=== PATIENT | male | born 1940 | race Caucasian/White ===

== ENCOUNTER 2019-04-03 08:59 | Inpatient (IN) | payer OTHER, MEDICAID ==
[2019-04-03] VITALS (13 sets, daily range): BP systolic 80–158; BP diastolic 47–95
[~2019-04-03] VITALS: Ht 167.6 cm; Wt 77.4 kg
--- NOTE | 2019-04-03 09:05 | NUR ---
I WAS CALLED OUT TO ED LOBBY FOR PT WITH CP AND SOB. PT WAS RECEIVED AND TRIAGED IN BED 8. PT WAS UNABLE TO ANSWER QUESTIONS APPROPRIATED AND WOULD ONLY GROAN STATING HE HAS CHEST PAIN, LEFT ARM PAIN, AND SOB. PT WAS ABLE TO AMBULATE TO GURFERTILE AND SIT UP. PT PLACED ON FULL CM. WILL CONTINUE TO MONITOR.
--- NOTE | 2019-04-03 09:13 | NUR ---
PT DIAPHORETIC AND RESTLESS, UNABLE TO OBTAIN ACCURATE ECG AFTER MULTIPLE ATTEMPTS. MADE AWARE.
--- NOTE | 2019-04-03 09:14 | NUR ---
WHILE CHARTING IN PT RM, PT PALLOR BECAME BIANCHI AND HE BECAME UNRESPONSIVE. NO PULSE WAS DETECTED UPON PALPATION. CODE BLUE STARTED AT 913. 915 PULSE CHECK NEGATIVE, CPR RESUMED. 916 1 EPINEPHRINE GIVEN. 917 PULSE CHECK POSITIVE, COMPRESSIONS STOPPED.
[2019-04-03 09:27] LABS: CALCIUM 8.4 mg/dL (8.5-10.1); CARBON DIOXIDE 23.3 mmol/L (21-32); CHLORIDE SERUM 107 mmol/L (98-107); GLUCOSE SERUM 114 mg/dL (74-106); POTASSIUM SERUM 3.7 mmol/L (3.5-5.1); SODIUM SERUM 146 mmol/L (136-145)
[2019-04-03 09:28] LABS: BASOPHIL % 0.8 % (0-2); PLATELET COUNT 204 x10^3mcL (130-400)
[2019-04-03 09:29] LABS: RED CELL DISTRIBUTION WIDTH 15.5 % (11.5-14.5)
[2019-04-03 09:31] LABS: ALBUMIN 3.8 g/dL (3.4-5.0); ALKALINE PHOSPHATASE 136 U/L (46-116); ALT/SGPT 45 U/L (16-63); AST/SGOT 47 U/L (15-37)
--- NOTE | 2019-04-03 09:45 | NUR ---
XRAY AT BEDSIDE
--- NOTE | 2019-04-03 10:29 | NUR ---
PT BP 85/50 MAP 62, PROPOFOL DRIP STOPPED. MADE AWARE.
--- NOTE | 2019-04-03 10:42 | NUR ---
PER DR. OKEEFE TITRATE DIPRIVAN TO 20MCG/KG/MIN. PT RESTLESS.
--- NOTE | 2019-04-03 10:50 | NUR ---
AT BEDSIDE TO PLACE CENTRAL LINE. PT SEDATED, TOLERATED PROCEDURE WELL.
--- NOTE | 2019-04-03 11:13 | NUR ---
DR. OKEEFE SPEAKING WITH FAMILY AT BEDSIDE.
--- NOTE | 2019-04-03 11:14 | NUR ---
DIPRIVAN TITRATED TO 5MCG/KG/MIN. DR. OKEEFE MADE AWARE.
--- NOTE | 2019-04-03 11:31 | NUR ---
DIPRIVAN TITRATED TO 10MCG/KG/MIN, PT BECOMING RESTLESS.
[2019-04-03 12:08] LABS: T3 TOTAL 1.17 ng/mL
--- NOTE | 2019-04-03 12:12 | NUR ---
REPORT GIVEN TO RN DEEPAK TO ASSUME CARE OF PT.
[2019-04-03 12:13] LABS: MAGNESIUM 2.1 mg/dL (1.8-2.4); PHOSPHOROUS 4.1 mg/dL (2.5-4.9)
[2019-04-03 12:15] LABS: UA SPECIFIC GRAVITY >=1.030 (1.005-1.035); microscopic required? YES; urine erythrocyte 2+ (NEGATIVE)
[2019-04-03 12:20] LABS: CHOLESTEROL/HDL RATIO 4.4
[2019-04-03 12:22] LABS: AMPHETAMINE QUAL UR NONE DETECTED (See below)
[2019-04-03 12:28] LABS: FREE T4 1.17 ng/dL (0.76-1.46); FREE THYROXINE INDEX 2.4 ug/dL (1.4-4.5); T4(THYROXINE) 7.2 ug/dL (4.7-13.3)
[2019-04-03] MEDS ORDERED: PAROXETINE HCL40 M1 PO (14:38)
[2019-04-03] MEDS ORDERED: FINASTERIDE5 M1 PO (14:40)
[2019-04-03] MEDS ORDERED: NAPROXEN375 MG PO (14:42)
[2019-04-03] MEDS ORDERED: GOOD SENSE OMEP20 MG (14:43)
[2019-04-03] MEDS ORDERED: NOR10 (14:43)
[2019-04-03] MEDS ORDERED: CARVEDILOL3.125 M1 (14:45)
--- NOTE | 2019-04-03 16:35 | NUR ---
BLOOD NOTED COMING FROM LAC. IV REMOVED FROM LAC AND RAC AT THIS TIME, MEDICATIONS PLACED TO CENTRAL LINE. PATIENT STABLE. WILL CONTINUE TO MONITOR.
--- NOTE | 2019-04-03 17:20 | NUR ---
DR MNEDENHALL AT BEDSIDE. ALL UPDATES PROVIDED. NO NEW ORDERS AT THIS TIME.
--- NOTE | 2019-04-03 17:43 | NUR ---
PATIENT GESTURING THAT HE FEELS IF HE HAS TO THROW UP. DR. COREYED PAGED AT THIS TIME.
--- NOTE | 2019-04-03 17:56 | NUR ---
PER DR. TONEY, HE WAS NOTIFIED OF PATIENT URINE OUTPUT BEING LOW, AND ALSO ZOFRAN FOR PATIENT. PER DR TONEY, PATIENT HAS CHF AND HE DOES NOT WANT TO ORDER FLUIDS AT THIS TIME. BUT HE WILL ORDER ZOFRAN. NO NEW ORDERS FOR URINE OUTPUT. WILL CONTINUE TO MONITOR.
--- NOTE | 2019-04-03 18:20 | NUR ---
DR. TONEY PAGED AT THIS TIME OF PATIENTS TROP BEING 0.211.
--- NOTE | 2019-04-03 18:29 | NUR ---
PATIENT WRITES ON PAPER THAT HE HAS FEELS THE NEED TO URINATE. EXPLAINED TO PATIENT THAT HE HAS A MURRELL. PATIENT WRITES THAT HE STILL HAS THE URGE. ACCORDING TO SON PATIENT HAS HX OF BPH. BLADDER SCAN DONE AT THIS TIME, SHOWING 0 ML. INFORMED FAMILY AND PATIENT. PATIENT AND FAMILY GAVE INDICATION OF UNDERSTANDING. WILL CONTINUE TO MONITOR.
--- NOTE | 2019-04-03 19:09 | NUR ---
REPORT GIVEN TO CHARAN GARCES ALL QUESTIONS ANSWERED.
--- NOTE | 2019-04-03 19:12 | NUR ---
RECEIVED REPORT FROM PRADIP FARRAR. ASSUMING ALL CARE
--- NOTE | 2019-04-03 19:15 | NUR ---
RECEIVED PT LAYING IN BED. PT IS INTUBATED AND SEDATED ON PROPOFOL @ 10 MCG/KG/MIN. RSS=4. PT IS ABLE TO FOLLOW SIMPLE COMMANDS. PT RESPONDS TO VERBAL STIMULI. PUPILS WITH BRISK RESPONSE TO LIGHT, 3 MM BILAT. GAG REFLEX PRESENT. 7.5 ETT INTACT/SECURED, 25 CM @ LL. RIJ CVC IN PLACE, ALL PORTS PATENT, DRESSING CDI. OGT INTACT/SECURED. ORAL CARE PROVIDED PER VAP PROTOCOL. ETT TO VENT. VENT SETTINGS: VCV/AC MODE, RATE 16, VT 500, PEEP 5, FIO2 80%. LUNGS SOUND CLEAR TO BUL AND DIMIN TO BLL. SYMMETRICAL CHEST EXPANSION NOTED. S1/S2 HEART SOUNDS AUSCULTATED. CHEST WALL EQUAL AND SYMMETRICAL. NO S/S OF CP NOTED. HR 58, BP 101/60, MAP 73. EPI GTT INFUSING @ 1 MCG/MIN. PALPABLE PULSES X4 EXTREMITIES. SKIN IS WARM AND DRY. + 1 PITTING EDEMA NOTED TO BLE. CAP REFILL < [address] GENERALIZED WEAKNESS. PT IS ON BEDREST. NO JOINT SWELLING/DEFORMITY NOTED. PT ON BILAT SOFT WRIST RESTRAINT WITH GOOD CIRCULATION NOTED. PT IS NPO AT THIS TIME. ABD IS DISTENDED. BOWEL SOUNDS ACTIVE X4 QUADRANTS. NO BM NOTED. MURRELL IS INTACT/SECURED, DRAINING VIA GRAVITY WITH MAIA COLORED URINE. POOR URINE OUTPUT. NO SCROTAL EDEMA NOTED. SKIN IS INTACT. PT REPOSITIONED Q2H AND PRN FOR COMFORT. PT IS CALM AND COOPERATIVE. FAMILY AT BEDSIDE. BED IN LOW POSITION. CALL LIGHT IN REACH. WILL CONT TO MONITOR
--- NOTE | 2019-04-03 19:34 | NUR ---
ERIKA KEY AT BEDSIDE. FIO2 TITRATED TO 60%. PT'S CURRENT O2 SATURATION 98%. WILL CONT TO MONITOR.
--- NOTE | 2019-04-03 23:38 | NUR ---
RT AT BEDSIDE FOR EKG
[2019-04-04] VITALS (11 sets, daily range): BP systolic 90–122; BP diastolic 52–76; Ht 167.6 cm; Wt 77.4 kg
--- NOTE | 2019-04-04 02:05 | NUR ---
CRITICAL LAB RESULT: TROPONIN 0.176. TRENDING DOWN. WILL CONT TO MONITOR.
--- NOTE | 2019-04-04 04:15 | NUR ---
PT IS RESTLESS AT THIS TIME. ATTEMPTING TO PULL ON ETT. EDUCATED ON IMPORTANCE OF NOT REMOVING ANY LINES/TUBES. PT NODDED HEAD IN AGREEMENT. PROPOFOL TITRATED TO 15 MCG/KG/MIN. WILL CONT TO MONITOR.
[2019-04-04 04:35] LABS: BASOPHIL % 0.4 % (0-2); PLATELET COUNT 183 x10^3mcL (130-400)
[2019-04-04 05:09] LABS: RED CELL DISTRIBUTION WIDTH 15.2 % (11.5-14.5)
--- NOTE | 2019-04-04 05:15 | NUR ---
FIO2 TITRATED TO 50% BY ERIKA KEY. PT'S O2 SATUTRATION 95%. WILL CONT TO MONITOR
[2019-04-04 05:18] LABS: CALCIUM 7.9 mg/dL (8.5-10.1); CARBON DIOXIDE 22.4 mmol/L (21-32); CHLORIDE SERUM 111 mmol/L (98-107); GLUCOSE SERUM 127 mg/dL (74-106); MAGNESIUM 1.9 mg/dL (1.8-2.4); PHOSPHOROUS 3.8 mg/dL (2.5-4.9); POTASSIUM SERUM 3.6 mmol/L (3.5-5.1); SODIUM SERUM 147 mmol/L (136-145)
--- NOTE | 2019-04-04 06:05 | NUR ---
DR. BARRERA MADE AWARE OF NIBP 99/55, MAP 67. PER DR. BARRERA, HOLD OFF ON BUMEX MEDICATION. WILL CHANGE SEDATION FROM PROPOFOL TO VERSED.
--- NOTE | 2019-04-04 06:19 | NUR ---
X-RAY TECH AT BEDSIDE
--- NOTE | 2019-04-04 06:25 | NUR ---
PT IS CALM AT THIS TIME. PROPOFOL TITRATED TO 10 MCG/KG/MIN. WILL CONT TO MONITOR
--- NOTE | 2019-04-04 07:04 | NUR ---
REPORT GIVEN TO LEXX FARRAR. ALL QUESTIONS/CONCERNS ADDRESSED AT THIS TIME. ENDORSING ALL CARE
--- NOTE | 2019-04-04 08:02 | NUR ---
VENT FIO2 TITRATED DOWN TO 40% FROM 50% BY SUKHJINDER KEY. PT SPO2 CURRENTLY 97%, NO S/S RESPIRATORY DISTRESS NOTED. WILL CONTINUE TO MONITOR PT.
--- NOTE | 2019-04-04 09:13 | NUR ---
PT POX 88% INCREASED FIO2 FROM 40% BACK TO 50% POX IS 91%. WILL CONTINUE TO MONITOR
--- NOTE | 2019-04-04 09:40 | NUR ---
VERSED TITRATED DOWN TO 1 MG/HR FROM 2 MG/HR D/T SUKHJINDER RT WANTING TO TRY CPAP. WILL CONTINUE TO ASSESS AND MONITOR PT.
--- NOTE | 2019-04-04 09:53 | NUR ---
SUKHJINDER RT PLACED PT ON CPAP. SPO2 91%, RR 21, NO S/S ACUTE DISTRESS NOTED. WILL CONTINUE TO MONITOR PT.
--- NOTE | 2019-04-04 10:47 | NUR ---
PT PUT SUPINE TO REPOSITION IN BED, HR WENT DOWN TO 30'S. PT PUT BACK UP TO SEMI PEGUERO'S POSITION. HR RETURNED TO 80'S THEN GRADUALLY DECREASED TO 40'S. PT APPEARS ASYMPTOMATIC WITH NO DISTRESS. EPINEPHRINE TITRATED UP TO 2 MCG/MIN. WILL CONTINUE TO MONITOR PT FOR FURTHER EPISODES OF BRADYCARDIA.
--- NOTE | 2019-04-04 11:15 | NUR ---
PT PLACED ON BEDPAN FOR BM, PT NOTED TO BE BEARING DOWN TRYING TO PASS BM. BEDSIDE RN ENTERED ROOM UPON NOTING HR INCREASING TO 110+, RN NOTED PT TO BE DIAPHORETIC & SKIN COOL TO TOUCH. BEDSIDE RN LEFT ROOM TO NOTIFY HUMAN SERVICES CASE MANAGER, DIE TRY OUT WORKER ALERTED HUMAN SERVICES CASE MANAGER & BEDSIDE RN OF INDU @ 1130. 1130: PT ASYSTOLE ON MONITOR, NONRESPONSIVE TO VOICE AND NOXIOUS STIMULUS. COMPRESSIONS STARTED AT THIS TIME. 1132: ROSC. VS: BP 130/73 (92), RR 26, HR 53, O2 96% ON 100% FIO2 ON VENT.
--- NOTE | 2019-04-04 11:23 | NUR ---
CPAP TRIAL BEGAN AT 0950 AND WAS ENDED AT 1018 SPO2 WAS DROPPING DOWN TO THE 80S ABG WAS TAKEN AND PT IS NOW ON A/C RR 16, VT 500, PEEP 5 FIO2 100% POST ABG RESULTS DR. TONEY WAS CONTACTED AND RESULTS WERE READ BACK AND VERIFIED. PLANS ARE TO KEEP PT SEDATED AND TO CONSULT THE ROPE TWISTING MACHINE OPERATOR FOR FURTHER TX. WILL CONTINUE TO MONITOR.
--- NOTE | 2019-04-04 12:13 | NUR ---
DOPAMINE DRIP INITIATED AT 5 MCG/KG/MIN. EPI DRIP CONTINUES AT 2 MCG/MIN WITH INSTRUCTIONS TO STOP EPI DRIP AN HOUR AFTER INITIATION OF DOPAMINE DRIP. PRIMARY RN AWARE.
--- NOTE | 2019-04-04 12:30 | NUR ---
SOFT WRIST RESTRAINTS REMOVED FROM PT AT THIS TIME. NO PURPOSEFUL MOVEMENT NOTED AT THIS TIME. FAMILY AT BEDSIDE, EDUCATED ON INFORMING RN IF PT SEEN ATTEMPTING TO GRASP ETT.
--- NOTE | 2019-04-04 13:43 | NUR ---
EPINEPHRINE GTT STOPPED AT THIS TIME.
--- NOTE | 2019-04-04 14:05 | NUR ---
RECEIVED PHONE CALL FROM HAIDER, TRAINING ASSOCIATE AT [facility]. UPDATES PROVIDED & CONTACT INFORMATION GIVEN TO HAIDER FOR DR. TONEY.
--- NOTE | 2019-04-04 14:13 | NUR ---
RECIEVED CALL FROM [facility] IN REGARDS TO PT TRANSFER AND SPOKE TO MARGARITA WHO STATED THEIR DOCTOR FEELS THE PATIENT IS UNSTABLE AT THIS TIME AND RECOMMENDS PT TO HAVE A TEMPORARY PACEMAKER TO SEE HOW HE RESPONDS AND TO WEAN OFF THE DRIP BEFORE CONSIDERING ACCEPTING PT. ALSO STATED PT WILL EVERARDO A DEFIBILATOR. TRANSFER TO [facility] ON HOLD AT THIS TIME.
--- NOTE | 2019-04-04 14:34 | NUR ---
DR. TONEY CAME TO UNIT TO PROVIDE UPDATE RE: TRANSFERRING PT TO [facility]. AT THIS TIME, THEIR TEAM DOES NOT BELIEVE THAT THIS PT IS A GOOD CANDIDATE FOR PERMANENT IMPLANTED PACEMAKER. WILL CONTINUE TO ADVOCATE FOR PT BEING TRANSFERRED TO [facility].
--- NOTE | 2019-04-04 15:45 | NUR ---
PT WENT AYSTOLE AT 1130 AND ROSC WAS REGAINED AT 1132. NO FURTHER ATTEMPTS FOR CPAP WILL BE MADE. PT WILL BE TRANSFERRED OUT FOR PACEMAKER. WILL CONTINUE TO MONITOR.
--- NOTE | 2019-04-04 17:08 | NUR ---
REPORT GIVEN TO KATIE FARRAR AT [facility] IN THE CARDIAC ICU. QUESTIONS ANSWERED, CONCERNS ADDRESSED. AWAITING TRANSPORT TEAM AT THIS TIME.
--- NOTE | 2019-04-04 17:48 | NUR ---
REPORT GIVEN TO HOT BILLET SHEAR OPERATOR SUNI, QUESTIONS ANSWERED, CONCERNS ADDRESSED. VITAL SIGNS STABLE AT THIS TIME, BP 102/59 (71), T 98.6, HR 71, RR 16, O2 96%. PT BEING TRANSPORTED BY [facility] TO [facility], [address] CARDIAC ICU FOR HIGHER LEVEL OF CARE. NO S/S ACUTE DISTRESS NOTED AT THIS TIME.
== END 2019-04-04 18:06 | disposition short-term general hospital (02) | DRG 208 ==
LOC: ED 08:59 → IC 10:19
PROVIDERS: Emergency Medicine; ADMIT General Practice
PROC: 5A1945Z Respiratory Ventilation, 24-96 Consecutive Hours (ICD-10-PCS; principal; 2019-04-03)
PROC: 0BH17EZ Insertion of Endotracheal Airway into Trachea, Via Natural or Artificial Opening (ICD-10-PCS; 2019-04-03)
PROC: 05HM33Z Insertion of Infusion Device into Right Internal Jugular Vein, Percutaneous Approach (ICD-10-PCS; 2019-04-03)
PROC: B543ZZA Ultrasonography of Right Jugular Veins, Guidance (ICD-10-PCS; 2019-04-03)
DX: J96.01 Acute respiratory failure with hypoxia (principal); R57.0 Cardiogenic shock; I50.23 Acute on chronic systolic (congestive) heart failure; I44.2 Atrioventricular block, complete; I42.9 Cardiomyopathy, unspecified; Z68.27 Body mass index [BMI] 27.0-27.9, adult
CPT/HCPCS: 36600; 82962; 83880; 84439; 90732; A4628; G0378; J0171; J0456; J0696; J1265; J1940; J2250; J2405; J2704; J3490; J7040; J7050; J7060